=== PATIENT | female | born 1955 | race African-American/Black ===

== ENCOUNTER → 2017-01-26 | Outpatient (CLI) | payer OTHER ==
[~2017-01-26] MED LIST: ALBUTEROL 0.5ML INH; ALBUTEROL17 GM INH; ALLERGY10 M2 PO; ASPIRIN81 M2 PO; ASPIRIN81 MG PO; BASAGLAR K100 UNIT/1 SUBQ; BENTYL20 M1 PO; BENTYL20 MG PO; COGENTIN1 M1 PO; COMBIVENT MININEB INH; COMBIVENT RESPIM4 GM IH; EFFIENT10 MG PO; FLEXERIL10 MG PO; GABAPENTIN300 M2 PO; GLUCOPHAGE XR750 MG PO; HYDROCHLOROTHIA25 MG PO; HYDROCODON-ACE1 EA14 PO; HYDROCODON-ACE1 EAC7 PO; IPRAT-ALBUT 0.5-3 ML NEB; JANUVIA PO; KLONOPIN1 MG PO; LAMICTAL100 MG PO; LANTUS SOLOSTAR3 ML SUBQ; LEXAPRO; LIPITOR80 MG PO; LISINOPRIL10 MG PO; LYRICA50 MG PO; METFORMIN PO; MOBIC PO; NEURONTIN300 MG PO; OMEPRAZOLE20 M1 PO; OMEPRAZOLE20 M2 PO; PROVENTIL0.83 MG/ML IH; SEROQUEL; SEROQUEL XR300 MG PO; SEROQUEL300 MG PO; SYMBICORT INH; TOPAMAX PO; TOPIRAMATE ER100 MG PO; TOPROL XL 50 MG50 MG PO; TOPROL XL50 MG PO; TYLENOL #3 PO; VITAMIN D50000 UNIT PO; ZESTRIL10 M1 PO; ZYRTEC10 M2 PO
--- NOTE | ~2017-01-26 | MR113 ---
[facility] A Service of [facility] & [facility] RADIOLOGY TEXT RESULTS PATIENT: JERAD FIGUEROA LOCATION: [facility] : 57 UNIT #: [id number] AGE: [address]: Mauricio Cherry SEX: F ORDER DR: [id number] [facility] [address] [place], [place] [address] [id number] O MR#: [id number] Acc #: [id number] NAME: JERAD FIGUEROA : 1955 SEX: F STUDY DATE/TIME: 01/26/2017 15:38 UNIT: [facility] ROOM: STUDY DESCRIPTION: MR Lumbar Wo Contrast Attending Physician: Mauricio Cherry A.P.R.N. Referring Physician: Mauricio Cherry A.P.R.N. Ordering Physician: Mauricio Cherry A.P.R.N. Primary Care Physician: Mauricio Cherry A.P.R.N. MRI CENTER REPORT This report is preliminary unless electronic signature is present. EXAM MRI of the lumbar spine without contrast dated 01/26/2017. COMPARISON Plain films lumbar spine dated 01/23/2009. HISTORY Low back pain with right leg numbness, neuropathy in the feet. Numbness since December 2016 with burning sensation. Fell twice last year. History of arthritis. FINDINGS Multisequence, multiplanar imaging of the lumbar spine was obtained without contrast. Vertebral body heights and alignment are preserved. Degenerative disc disease is seen from L2-3 to L5-S1. Conus terminates at upper L1. Signal of conus and cauda equina are within normal limits. Pre and paravertebral soft tissues do not demonstrate any significant abnormality. L1-2: Mild degenerative disc signal loss is noted without any significant focal disc herniation, canal stenosis or neural foraminal narrowing. Minimal bilateral facet changes. L2-3: Mild concentric disc bulge with mild inferior bilateral neural foraminal encroachment. Borderline-sized canal and minimal bilateral facet changes are seen. L3-4: Concentric disc bulge with bilateral foraminal to extraforaminal broad-based protrusions and suspicious small left central disc extrusion with mild superior migration measuring 9 mm in height. Mild bilateral facet changes are seen. There is mild canal stenosis. L4-5: Concentric disc bulge with mild inferior bilateral neural foraminal STS. [facility] A Service of [facility] & [facility] RADIOLOGY TEXT RESULTS PATIENT: JERAD FIGUEROA LOCATION: [facility] : 57 UNIT #: [id number] AGE: [address]: Mauricio Cherry SEX: F ORDER DR: juany. Severe left and moderate right facet hypertrophic changes are noted with moderate mass effect on the thecal sac. Prominent epidural fat is seen. L5-S1: Disc osteophyte complex with asymmetrical prominence in bilateral foraminal to extraforaminal regions particularly in the right. Severe right and [id number] left neural foraminal narrowing are noted with severe right and jlyz-ev-xxhrjezu left facet hypertrophic change. There is mild impingement on bilateral S1 nerve roots in bilateral lateral recess. No canal stenosis. IMPRESSION 1. Degenerative changes are noted at multiple levels, relatively worse in the lower lumbar spine. 2. There is a tiny left central disc extrusion with superior migration of the 9-10 mm at L3-4. 3. Neural foraminal narrowing is noted particularly in bilateral L5-S1. Correlate with bilateral L5 radiculopathy. 4. There is some prominence of epidural fat, particularly at the level of L4-5 and to a lesser degree at L3-4. Mild epidural lipomatosis, benign entity is in the differential consideration. 5. Facet hypertrophic changes are noted at multiple levels of varying degrees. It is very severe in left L4-5 and severe in right L5-S1 facet joints. Dictated by... Andria Alfaro M.D. THIS IS AN ELECTRONICALLY VERIFIED REPORT Andria Alfaro M.D. at 01/28/2017 8:46 AM CPR/bridgette TD: 01/27/2017 09:14 JOB #: [id number] MRI CENTER REPORT Page 1 of 1 COPY
== END | disposition home or self-care (01) ==
LOC: CMRI 14:49
DX: M54.5 Low back pain (principal); R20.0 Anesthesia of skin; M47.816 Spondylosis without myelopathy or radiculopathy, lumbar region
CPT/HCPCS: 72148

== ENCOUNTER → 2017-05-14 | Outpatient (CLI) | payer OTHER ==
[~2017-05-14] VITALS: Ht 160 cm; Wt 131.6 kg
--- NOTE | ~2017-05-14 | EKG ---
PATIENT: JERAD FIGUEROA UNIT #: [id number] Ventricular Rate: 62 BPM Atrial Rate: 62 BPM P-R Interval: 144 ms QRS Duration: 64 ms Q-T Interval: 394 ms QTC Calculation(Bezet): 399 ms P [place]: 65 degrees Calculated R [place]: 32 degrees Calculated T [place]: 49 degrees Diagnosis Line: Normal sinus rhythm Diagnosis Line: Normal ECG Diagnosis Line: When compared with ECG of 08-JUL-2015 07:40, Diagnosis Line: No significant change was found Diagnosis Line: Confirmed by JOE FLORES MD ([id number]) on 05/14/2017 Diagnosis Line: 7:58:56 PM INTERPRETING MD: MARK CONCEPCION
[2017-05-14 08:46] LABS: BASOPHIL# 0.1 X10e3 (0-0.3); BASOPHIL% 0.6 % (0-2.5); EOSINOPHIL% 0.1 % (0.0-7.0); HEMATOCRIT 45.9 % (35.0-45.0); HEMOGLOBIN 15.1 gm/dL (12.0-16.0); LYMPHOCYTE# 1.8 X10e3 (1.0-3.5); LYMPHOCYTE% 19.3 % (17.0-45.0); MEAN CORPUSCULAR HEMOGLOBIN 29.6 PG (28-34); MEAN CORPUSCULAR HGB CONC 32.9 g/dL (30-36); MEAN PLATELET VOLUME 7.9 FL (6.5-11.5); MONOCYTE# 0.5 X10e3 (0-1.0); MONOCYTE% 5.4 % (3.0-12.0); NEUTROPHIL# 7.1 X10e3 (1.5-7.1); NEUTROPHIL% 74.6 % (40-75); PLATELET COUNT 263 X10e3 (140-420); RED CELL DISTRIBUTION WIDTH 14.9 % (11.0-15.5); WHITE BLOOD COUNT 9.5 X10e3 (4.0-10.5)
[2017-05-14 08:48] LABS: DIFF IND NO
[2017-05-14 09:01] LABS: INR 1.1; PARTIAL THROMBOPLASTIN TIME 26.1 SECONDS (23.5-31.3); PROTHROMBIN TIME (PATIENT) 11.4 SECONDS (10.0-11.7)
[2017-05-14 09:15] LABS: BUN/CREATININE RATIO 17.77; CALCIUM SERUM 9.6 mg/dL (8.4-10.2); CREATININE SERUM 0.9 mg/dL (0.6-1.4); GLOM FILT RATE Estimated 80.6 mL/min (>60); POTASSIUM 5.1 mmol/L (3.5-5.1)
== END | disposition home or self-care (01) ==
LOC: CCVL 08:00
PROVIDERS: Internal Medicine Cardiovascular Disease
DX: R07.89 Other chest pain (principal); R06.02 Shortness of breath; I10 Essential (primary) hypertension; E78.5 Hyperlipidemia, unspecified; E11.9 Type 2 diabetes mellitus without complications; F17.200 Nicotine dependence, unspecified, uncomplicated; Z91.041 Radiographic dye allergy status; Z79.899 Other long term (current) drug therapy; Z79.84 Long term (current) use of oral hypoglycemic drugs; Z79.4 Long term (current) use of insulin; Z79.82 Long term (current) use of aspirin; Z98.61 Coronary angioplasty status
CPT/HCPCS: 36415; 80048; 85025; 85610; 85730; 93005; C1769; C1887; C1894; J1644; J2250; J3010